=== PATIENT | male | born 1940 | race Caucasian/White ===

== ENCOUNTER 2016-07-02 09:30 | Outpatient (CLI) | payer MEDICARE, OTHER ==
[2016-07-02 09:58] LABS: BASOPHILS % 0.4 (0.0-1.5); EOSINOPHILS % 1.8 % (0.0-6.8); MEAN CORPUSCULAR HEMOGLOBIN 30.2 pg (28.0-34.0); MEAN CORPUSCULAR VOLUME 94.6 fl (80.0-100.0); MONOCYTES % 8.5 % (0.0-11.0); NEUTROPHILS # 4.5 # k/uL (1.4-7.7)
[2016-07-02 10:09] LABS: APPEARANCE,URINE Clear (CLEAR); COLOR,URINE Yellow (YELLOW); OCCULT BLOOD,URINE Negative (NEGATIVE); PH URINE 5.5 (5.0 - 8.0)
[2016-07-02 10:17] LABS: AMORPHOUS SEDIMENT,UR FEW (NEGATIVE)
[2016-07-02 10:29] LABS: eGFR (African) > 60; eGFR (Non-African) > 60
== END 2016-07-02 09:32 ==
LOC: LAB 09:30
PROVIDERS: ATTEND Internal Medicine
DX: N40.0 Benign prostatic hyperplasia without lower urinary tract symptoms (principal); Z86.12 Personal history of poliomyelitis; E78.5 Hyperlipidemia, unspecified; I10 Essential (primary) hypertension; E03.9 Hypothyroidism, unspecified
CPT/HCPCS: 80053; 80061; 81002; 84153; 84439; 84443; 85025; 87086

== ENCOUNTER 2016-08-02 08:24 | Emergency (ER) | payer MEDICARE, OTHER ==
[2016-08-02 08:57] VITALS: BP 113/78
--- NOTE | 2016-08-02 09:02 | ED Physician Documentation ---
Lower Extremity Problem - HPI Stated Complaint: LLE swelling/pain Chief Complaint: Lower Extremity Problem Additional Information: stepped and strained leg thursday, has gotten more sollen since. now with ache in calf, and swelling into foot. He takes a blood thinner daily for a-fib Location of Injury: R foot, R ankle, R leg Onset: days ago Timing: still present Duration: constant Recent Injury: Yes Where: home Severity: mild Quality: swelling, tenderness Exacerbated By: walking Relieved By: nothing Associated Symptoms: denies: chest pain, shortness of breath, rapid heart rate Further Comments: no - ROS CONST: no problems MS/SKIN/LYMPH: calf pain, leg swelling, ankle swelling CVS/RESP: none GI/: none EYES/ENT: none NERUO/PSYCH: denies: headache, difficulty walking - PAST HX Past History: none PE Risk Factors: hypertension, leg swelling Other History: A-Fib, hypertension Surgeries/Procedures: other Immunizations: UTD Allergies/Adverse Reactions: Allergies Allergy/AdvReac Type Severity Reaction Status Date / Time No Known Allergies Allergy Verified 08/02/16 08:42 Home Medications: Ambulatory Orders Medication Instructions Recorded Bisoprolol Fumarate [Zebeta] 5 mg PO DAILY 08/02/16 Olmesartan/Hydrochlorothiazide 1 tab PO DAILY 08/02/16 [Benicar Hct 40-25 mg Tablet] Pantoprazole Sodium [Protonix] 40 mg PO DAILY 08/02/16 Rivaroxaban [Xarelto] 20 mg PO DAILY 08/02/16 Simvastatin [Zocor] 20 mg PO DAILY 08/02/16 - SOCIAL HX Smoking History: non-smoker, quit greater than 1 year Alcohol Use: none Drug Use: none - FAMILY HX Family History: none - VITAL SIGNS Vital Signs: Vital Signs Temp Pulse Resp BP Pulse Ox 98.2 F 77 18 113/78 95 08/02/16 08:44 08/02/16 08:44 08/02/16 08:44 08/02/16 08:44 08/02/16 08:44 - REVIEWED ASSESSMENTS Nursing Assessment Reviewed: Yes Vitals Reviewed: Yes ED Results Lab/Radiology - Lab Results Lab Results: Lab Results 08/02/16 09:10 D-Dimer 482 ng/mL ng/mL (6.0-682) D-Dimer normal - Orders Orders: ED Orders Category Date Time Status D DIMER Stat Lab 08/02/16 09:10 Completed Lower Extremity Problem - EXAM General Appearance: no distress Hips: bilateral hip: non-tender Legs: bilateral: non-tender Knees: bilateral: non-tender Ankle: right: soft tissue tenderness, swelling Foot: right foot: soft tissue tenderness, swelling Neuro/Tendon: normal sensation, normal motor functions EENT: ENT inspection normal RESPIRATORY: no resp distress JOINT: joints nml, nml ROM, Nml gait/weight bearing VASCULAR: no vascular compromise, pulses full/equal NEURO/PSYCH: oriented X3 SKIN: warm/dry BACK: normal inspection Discharge Clincal Impression: High ankle sprain Qualifiers: Encounter type: initial encounter Laterality: left Qualified Code(s): S93.432A - Sprain of tibiofibular ligament of left ankle, initial encounter Muscle strain of left lower extremity Qualifiers: Encounter type: initial encounter Qualified Code(s): S86.912A - Strain of unspecified muscle(s) and tendon(s) at lower leg level, left leg, initial encounter Referrals: Gonzalo Velasco MD [Primary Care Provider] - 2 Days Home Medications: Ambulatory Orders Bisoprolol Fumarate [Zebeta] 5 mg PO DAILY 08/02/16 Olmesartan/Hydrochlorothiazide [Benicar Hct 40-25 mg Tablet] 1 tab PO DAILY Pantoprazole Sodium [Protonix] 40 mg PO DAILY 08/02/16 Rivaroxaban [Xarelto] 20 mg PO DAILY 08/02/16 Simvastatin [Zocor] 20 mg PO DAILY 08/02/16 Condition: Stable Disposition: 01 HOME, SELF-CARE Decision to Admit: NO Date of Decison to Admit: 08/02/16 Decision Time: 09:53
== END 2016-08-02 10:10 | disposition home or self-care (01) ==
LOC: ED 08:24
DX: S93.432A Sprain of tibiofibular ligament of left ankle, initial encounter (principal); S86.912A Strain of unspecified muscle(s) and tendon(s) at lower leg level, left leg, initial encounter; X58.XXXA Exposure to other specified factors, initial encounter; Y93.9 Activity, unspecified; Y99.9 Unspecified external cause status
CPT/HCPCS: 36415; 85379; 99283

== ENCOUNTER → 2017-03-27 | Outpatient (CLI) | payer MEDICARE, OTHER ==
[2017-03-27 14:43] LABS: APPEARANCE,URINE Clear (CLEAR); COLOR,URINE Yellow (YELLOW); OCCULT BLOOD,URINE Negative (NEGATIVE); PH URINE 5.5 (5.0 - 8.0); UROBILINOGEN URINE 0.2 Eu (0.2-1.0)
[2017-03-27 14:45] LABS: BASOPHILS % 0.6 (0.0-1.5); EOSINOPHILS % 1.7 % (0.0-6.8); MEAN CORPUSCULAR HEMOGLOBIN 28.1 pg (28.0-34.0); MEAN CORPUSCULAR VOLUME 89.8 fl (80.0-100.0); MONOCYTES % 9.4 % (0.0-11.0); NEUTROPHILS # 5.6 # k/uL (1.4-7.7)
[2017-03-27 15:45] LABS: eGFR (African) > 60; eGFR (Non-African) > 60
== END ==
LOC: LAB 14:07
PROVIDERS: ATTEND Internal Medicine
DX: I10 Essential (primary) hypertension (principal); L03.90 Cellulitis, unspecified
CPT/HCPCS: 36415; 80053; 81002; 85025

== ENCOUNTER 2017-07-10 10:07 | Outpatient (CLI) | payer MEDICARE, OTHER ==
[2017-07-10 10:30] LABS: BASOPHILS % 0.5 (0.0-1.5); EOSINOPHILS % 2.9 % (0.0-6.8); MEAN CORPUSCULAR HEMOGLOBIN 29.5 pg (28.0-34.0); MEAN CORPUSCULAR VOLUME 92.1 fl (80.0-100.0); MONOCYTES % 7.1 % (0.0-11.0); NEUTROPHILS # 6.5 # k/uL (1.4-7.7)
[2017-07-10 10:56] LABS: eGFR (African) > 60; eGFR (Non-African) > 60
== END 2017-07-10 10:54 ==
LOC: LAB 10:07
PROVIDERS: ATTEND Internal Medicine
DX: I10 Essential (primary) hypertension (principal); E78.5 Hyperlipidemia, unspecified; N40.0 Benign prostatic hyperplasia without lower urinary tract symptoms; R30.9 Painful micturition, unspecified; Z12.5 Encounter for screening for malignant neoplasm of prostate; E03.9 Hypothyroidism, unspecified
CPT/HCPCS: 36415; 80053; 80061; 84153; 84439; 84443; 85025

== ENCOUNTER 2017-10-02 11:00 | Emergency (ER) | payer MEDICARE, OTHER ==
--- NOTE | 2017-10-02 11:48 | ED Physician Documentation ---
General Adult - HISTORIAN Historian: patient - HPI Stated Complaint: Left Lower Leg Swelling Chief Complaint: General Adult Onset: days ago Timing: still present Severity: moderate Further Comments: yes (Pt is a 77 yo male who fell a week ago and injured his L leg. Pt saw his pcp about swelling in his leg and his pcp had the pt d/c Xeralto 5 days ago, due to hematoma. Swelling has been increasing and leg is now red and tender. Pt has not had any sob, cp.) - ROS CONST: no problems EYES/ENT: none CVS/RESP: none GI/: none MS/SKIN/LYMPH: calf pain (redness swelling) - PAST HX Past History: other (CVA, GERD, HLD, HTN) Allergies/Adverse Reactions: Allergies Allergy/AdvReac Type Severity Reaction Status Date / Time No Known Allergies Allergy Verified 08/02/16 08:42 Home Medications: Ambulatory Orders Medication Instructions Recorded Bisoprolol Fumarate [Zebeta] 5 mg PO DAILY 08/02/16 Olmesartan/Hydrochlorothiazide 1 tab PO DAILY 08/02/16 [Benicar Hct 40-25 mg Tablet] Pantoprazole Sodium [Protonix] 40 mg PO DAILY 08/02/16 Rivaroxaban [Xarelto] 20 mg PO DAILY 08/02/16 Simvastatin [Zocor] 20 mg PO DAILY 08/02/16 - SOCIAL HX Smoking History: non-smoker - FAMILY HX Family History: No - VITAL SIGNS Vital Signs: Vital Signs Temp Pulse Resp BP Pulse Ox 98.1 F 78 20 133/80 98 10/02/17 11:00 10/02/17 11:00 10/02/17 11:00 10/02/17 11:00 10/02/17 11:00 - REVIEWED ASSESSMENTS Nursing Assessment Reviewed: Yes Vitals Reviewed: Yes Progress - Progress Progress: Pt needs doppler us of Shailesh ALMAGUER. Transfer to . Hosp. Dr. Argelia Hernandez. ED Results Lab/Radiology - Orders Orders: ED Orders Category Date Time Status CBC/PLATELET/DIFF Routine Lab 10/02/17 11:35 Received CMP Routine Lab 10/02/17 11:35 Received D DIMER Stat Lab 10/02/17 11:35 Received PT-INR Routine Lab 10/02/17 11:35 Received PTT Routine Lab 10/02/17 11:35 Received General Adult Physical Exam - PHYSICAL EXAM GENERAL APPEARANCE: mild distress EENT: pharynx normal NECK: normal inspection, supple RESPIRATORY: no resp distress, chest non-tender, breath sounds normal CVS: reg rate & rhythm, heart sounds normal ABDOMEN: soft, no organomegaly, normal bowel sounds SKIN: other (L leg swelling, tenderness, erythema, ecchymosis; pedal edema, L side only) EXTREMITIES: tenderness (L leg tenderness, swelling; pedal edema, L side only), other (L arm flacid s/p CVA) NEURO: oriented X3, other (L arm flacid s/p CVA) Discharge Clincal Impression: Leg swelling, possible DVT Referrals: Gonzalo Velasco MD [Primary Care Provider] - Condition: Stable Disposition: XFER [id number]-TRM HOSP Decision to Admit: NO Decision Time: 13:01
[2017-10-02 11:58] LABS: BASOPHILS % 0.4 (0.0-1.5); EOSINOPHILS % 1.2 % (0.0-6.8); MEAN CORPUSCULAR HEMOGLOBIN 29.6 pg (28.0-34.0); MEAN CORPUSCULAR VOLUME 96.1 fl (80.0-100.0); MONOCYTES % 7.9 % (0.0-11.0); NEUTROPHILS # 5.7 # k/uL (1.4-7.7)
[2017-10-02 12:05] LABS: eGFR (African) > 60; eGFR (Non-African) > 60
[2017-10-02 13:12] VITALS: BP 109/76
== END 2017-10-02 13:21 | disposition short-term general hospital (02) ==
LOC: ED 11:00
DX: R60.0 Localized edema (principal)
CPT/HCPCS: 80053; 85025; 85379; 85610; 85730; 99284; S1016

== ENCOUNTER 2018-03-13 12:55 | Emergency (ER) | payer MEDICARE, OTHER ==
[2018-03-13 13:33] VITALS: BP 113/71
--- NOTE | 2018-03-13 14:17 | ED Physician Documentation ---
Wound Recheck - HISTORIAN Historian: patient - HPI Stated Complaint: wound dressing change Chief Complaint: General Adult Additional Information: intro self as [employer] pt presents to the ED requesting wound check of healing abscess on back. pt initially was treated with primary care 5 days ago (lanced and placed on unknown abx) and was re packed at wound care on 3 days ago. 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 pt denies other complaints or symptoms. pt denies current chest pain, dyspnea, syncope/near syncope, headache, dizziness, visual disturbances, n/v/d, fever/chills, rash, sick contacts, dysuria, trauma. melena or hematochezia, bleeding or easy bruising, change in bowel or bladder function, no recent weight loss/gain, anxiety or depression. ROS Negative unless otherwise specified. Previous ED Treatment: I & D of abscess Antibiotics Given: prescription Symptoms Since Procedure: denies: fever, chills - ROS NEURO: denies: headache CONST: no problems - PAST HX Past History: other (Right shoulder surgery, hernia. Polio with residual RUE weakness. HTN, Hyperlipidemia, ) Allergies/Adverse Reactions: Allergies Allergy/AdvReac Type Severity Reaction Status Date / Time No Known Allergies Allergy Verified 03/13/18 13:13 Home Medications: Ambulatory Orders Medication Instructions Recorded Bisoprolol Fumarate [Zebeta] 5 mg PO DAILY 08/02/16 Olmesartan/Hydrochlorothiazide 1 tab PO DAILY 08/02/16 [Benicar Hct 40-25 mg Tablet] Pantoprazole Sodium [Protonix] 40 mg PO DAILY 08/02/16 Rivaroxaban [Xarelto] 20 mg PO DAILY 08/02/16 Simvastatin [Zocor] 20 mg PO DAILY 08/02/16 Cefpodoxime Proxetil [Vantin] 200 mg PO BID 03/13/18 Trazodone HCl 50 mg PO DAILY 03/13/18 - SOCIAL HX Smoking History: quit greater than 1 year - FAMILY HX Family History: none - VITAL SIGNS Vital Signs: Vital Signs Temp Pulse Resp BP Pulse Ox 98.9 F 88 19 113/71 96 03/13/18 13:14 03/13/18 13:14 03/13/18 13:14 03/13/18 13:14 03/13/18 13:14 - REVIEWED ASSESSMENTS Nursing Assessment Reviewed: Yes Vitals Reviewed: Yes Physical Exam - Physical Exam General Appearance: no apparent distress Eye Exam: right eye: normal inspection Ears, Nose, Throat: hearing grossly normal Neck Exam: full range of motion Respiratory: no respiratory distress Back Exam: other (healing abscess. see wound assessment) Extremity: normal range of motion Neurologic: no motor/sensory deficits Skin Exam: normal color, warm/dry Lymphatic: no adenopathy Comments: Mid thoracic back healing abscess- packing removed- 3 cm circular area of blanching erythema with central 7 mm opening, 3 mm area of tunneling and depth approx 1 cm. draining small amount of exudate. Irrigated with 100 ml sterile saline with some exudate return and repacked with iodaform gauze. Mirapex dressing placed. advised pt to monitor for s/s of infection and return and have packing replaced in 2 days. understanding verbalized. Discharge Clincal Impression: Wound check, abscess, Dressing change Referrals: Gonzalo Velasco MD [Primary Care Provider] - 2 Days Additional Instructions: Follow up with primary care,wound care,ER in 2 days to have packing re moved/repacked and dressing replaced. Continue current antibiotic seek medical care immediately if, increased swelling, redness, drainage, pain, difficult to wake, difficulty breathing, feeling faint or fainting, increased rash, chest pain, shortness of breath, or fever not controlled by tylenol/motrin or any concern. follow up with primary care next week or before if not improving as expected. PLEASE UNDERSTAND THAT THIS IS AN EMERGENCY EVALUATION FOR YOUR COMPLAINT AND BY NATURE IS LIMITED AND NOT A SUBSTITUTE FOR ONGOING MEDICAL CARE. EVEN THOUGH TEST RESULTS AND TREATMENT PLAN WERE EXPLAINED THERE MAY BE A NEED FOR ADDITIONAL TESTING TO FULLY DETERMINE THE EXTENT OF YOUR ILLNESS/INJURY/OR CONCERN SO YOU SHOULD CONTACT AND OR ESTABLISH WITH A PRIMARY CARE PROVIDER (OR REFERRAL DOCTOR IF APPLICABLE) FOR AN APPOINTMENT SOON POSSIBLE Condition: Good Disposition: 01 HOME, SELF-CARE Decision to Admit: NO Date of Decison to Admit: 03/13/18 Decision Time: 14:16
== END 2018-03-13 14:29 | disposition home or self-care (01) ==
LOC: ED 12:55
DX: Z48.00 Encounter for change or removal of nonsurgical wound dressing (principal); L02.212 Cutaneous abscess of back [any part, except buttock and flank]
CPT/HCPCS: 99282